=== PATIENT | female | born 1990 | race American Indian/Alaskan Native ===

== ENCOUNTER 2017-01-16 22:19 | Emergency (ER) | payer MEDICAID ==
[2017-01-16 23:58] LABS: Basophils % (Auto) 0.3 % (0.0-1.8); Eosinophils % (Auto) 1.9 % (0.0-4.3); Hematocrit 39.4 % (30.3-42.9); Hemoglobin 12.8 gm/dl (10.1-14.3); Mean Corpuscular HGB Conc 33 % (30-34); Mean Corpuscular Hemoglobin 29 pg (28-32); Mean Corpuscular Volume 88 fl (79-97); Platelet Count 144 K/mm3 (140-440); Red Blood Count 4.49 M/mm3 (3.65-5.03); Red Cell Distribution Width 14.2 % (13.2-15.2); White Blood Count 8.8 K/mm3 (4.5-11.0)
[2017-01-17 00:05] LABS: Alanine Aminotransferase 6 units/L (7-56); Albumin 3.4 g/dL (3.9-5); Albumin/Globulin Ratio 1.2 %; Alkaline Phosphatase 41 units/L (35-129); Anion Gap 19 mmol/L; BUN/Creatinine Ratio 6.66; Blood Urea Nitrogen 6 mg/dL (7-17); Calcium 8.4 mg/dL (8.4-10.2); Carbon Dioxide 23 mmol/L (22-30); Chloride 98.1 mmol/L (98-107); Glucose 96 mg/dL (65-100); Lipase 20 units/L (13-60); Potassium 4.2 mmol/L (3.6-5.0); Sodium 136 mmol/L (137-145); Total Protein 6.3 g/dL (6.3-8.2)
[2017-01-17 05:45] LABS: Bacteria,Urine 1+ /HPF (Negative); Bilirubin,Urine NEG (Negative); Blood,Urine NEG (Negative); Ketones,Urine NEG (Negative); Leukocyte Esterase,Urine LG (Negative); Mucus,Urine FEW /HPF; Nitrite,Urine POS (Negative); Protein,Urine <15 mg/dL mg/dL (Negative)
[2017-01-17] MEDS ORDERED: NORCO 5/325 PO ONE (08:16)
--- NOTE | 2017-01-17 08:21 | Emergency Department Report ---
ED Abdominal Pain HPI - General Chief Complaint: Abdominal Pain Stated Complaint: PELVIC PAIN/LOWER BACK PAIN Time Seen by Provider: 01/17/17 08:11 Source: patient Mode of arrival: Ambulatory Limitations: No Limitations - History of Present Illness Initial Comments: 26-year-old female presents to the emergency department complaining of 3 days of right-sided abdominal pain and pelvic pain. Pain has been constant since onset, but has been increasing in intensity. Pain is described as aching and sharp. Pain does not radiate. She reports her pain is worse if she takes a deep breath. She also reports subjective fever and chills. Patient denies dysuria, but states she has the sensation that she has not fully emptied her bladder. She denies vaginal bleeding or vaginal discharge. There has been no nausea or vomiting. There are no other complaints. MD Complaint: abdominal pain -: Gradual, days(s) (3) Location: RUQ, RLQ Radiation: none Migration to: no migration Severity scale (0 -10): 10 Quality: aching, sharp Consistency: constant Improves With: nothing Worsens With: nothing Associated Symptoms: fever, chills - Related Data Previous Rx's Medication Instructions Recorded Last Taken Type HYDROcodone/APAP 7.5-325 [[place] 1 each PO Q6HR PRN #20 tablet 01/17/17 Unknown Rx 7.5/325] Nitrofurantoin [place]/M-Cryst 100 mg PO Q12HR #14 capsule 01/17/17 Unknown Rx [Macrobid CAP] Allergies Allergy/AdvReac Type Severity Reaction Status Date / Time No Known Allergies Allergy Unverified 04/20/13 12:37 ED Review of Systems ROS: Stated complaint: PELVIC PAIN/LOWER BACK PAIN Other details as noted in HPI Comment: All other systems reviewed and negative Constitutional: chills, fever Gastrointestinal: abdominal pain Genitourinary: as per HPI ED Past Medical Hx - Past Medical History Previous Medical History?: Yes Hx Asthma: Yes Additional medical history: pancreatitis at age 14, ovarian cyst-resolved - Surgical History Past Surgical History?: Yes Additional Surgical History: 3 c-sections, milk gland removed - Family History Family history: no significant - Social History Smoking Status: Current Every Day Smoker Substance Use Type: Alcohol - Medications Home Medications: Home Medications Medication Instructions Recorded Confirmed Last Taken Type HYDROcodone/APAP 7.5-325 [[place] 1 each PO Q6HR PRN #20 tablet 01/17/17 Unknown Rx 7.5/325] Nitrofurantoin [place]/M-Cryst 100 mg PO Q12HR #14 capsule 01/17/17 Unknown Rx [Macrobid CAP] ED Physical Exam - General Limitations: No Limitations General appearance: alert, in no apparent distress - Head Head exam: Present: atraumatic, normocephalic - Eye Eye exam: Present: normal appearance, PERRL, EOMI - ENT ENT exam: Present: normal exam, normal orophraynx, mucous membranes moist - Neck Neck exam: Present: normal inspection, full ROM. Absent: tenderness - Respiratory Respiratory exam: Present: normal lung sounds bilaterally. Absent: respiratory distress - Cardiovascular Cardiovascular Exam: Present: regular rate, normal rhythm, normal heart sounds - GI/Abdominal GI/Abdominal exam: Present: soft, tenderness (moderate tenderness to palpation right midabdomen), normal bowel sounds. Absent: distended, guarding, rebound - Extremities Exam Extremities exam: Present: normal inspection, full ROM. Absent: tenderness - Back Exam Back exam: Present: normal inspection, full ROM. Absent: tenderness - Neurological Exam Neurological exam: Present: alert, oriented X3. Absent: motor sensory deficit - Skin Skin exam: Present: warm, dry, intact ED Course Vital Signs 01/16/17 01/17/17 01/17/17 23:04 04:18 06:48 Temperature 98.8 F 100.2 F H 99.3 F Pulse Rate 105 H 108 H 116 H Respiratory 16 16 Rate Blood Pressure 132/85 134/76 Blood Pressure 122/83 [Left] O2 Sat by Pulse 100 100 98 Oximetry 01/17/17 07:58 Temperature 100.6 F H Pulse Rate 104 H Respiratory 16 Rate Blood Pressure Blood Pressure 126/72 [Left] O2 Sat by Pulse 100 Oximetry ED Medical Decision Making - Lab Data Result diagrams: 01/16/17 23:28 01/16/17 23:28 - Medical Decision Making Lab results reviewed and discussed with the patient. Exam is consistent with abdominal wall muscle spasm. Patient will be treated with pain medication in the emergency department. She will be discharged home at this time on oral pain medication as well as antibiotic for her urinary tract infection. - Differential Diagnosis abdominal pain, UTI, pyelonephritis, cholecystitis Critical care attestation.: If time is entered above; I have spent that time in minutes in the direct care of this critically ill patient, excluding procedure time. ED Disposition Clinical Impression: Abdominal wall pain in right flank UTI (urinary tract infection) Qualifiers: Urinary tract infection type: acute cystitis Hematuria presence: without hematuria Qualified Code(s): N30.00 - Acute cystitis without hematuria Disposition: DISCHARGED TO HOME OR SELFCARE Is pt being admited?: No Condition: Stable Instructions: Abdominal Pain (ED), Urinary Tract Infection in Women (ED) Prescriptions: HYDROcodone/APAP 7.5-325 [[place] 7.5/325] 1 each PO Q6HR PRN #20 tablet PRN Reason: Pain Nitrofurantoin [place]/M-Cryst [Macrobid CAP] 100 mg PO Q12HR #14 capsule Referrals: PRIMARY CARE, [Primary Care Provider] - 3-5 Days Time of Disposition: 08:22
[2017-01-17] MEDS ORDERED: DILAUDID IM ONE (08:41)
[2017-01-17 10:25] VITALS: BP 94/56
== END 2017-01-17 10:35 | disposition home or self-care (01) ==
LOC: ED 22:19
DX: N30.00 Acute cystitis without hematuria (principal); J45.909 Unspecified asthma, uncomplicated; F17.200 Nicotine dependence, unspecified, uncomplicated
CPT/HCPCS: 36415; 80053; 81001; 81025; 83690; 85025; 96372; 99283; J1170